=== PATIENT | female | born 1995 | race Caucasian/White ===

== ENCOUNTER 2018-12-21 06:07 | Emergency (ER) | payer OTHER ==
[~2018-12-21] VITALS: Ht 162.6 cm; Wt 84.5 kg
[2018-12-21 06:10] VITALS: Ht 162.6 cm; Wt 84.5 kg
[2018-12-21 08:05] VITALS: BP 118/62
== END 2018-12-21 08:04 | disposition home or self-care (01) ==
LOC: ED 06:07
DX: B00.2 Herpesviral gingivostomatitis and pharyngotonsillitis (principal); R51 Headache; Z98.890 Other specified postprocedural states
CPT/HCPCS: J1100